=== PATIENT | female | born 1985 | race Caucasian/White ===

== ENCOUNTER 2023-04-19 18:06 | Emergency (ER) | payer BC, SELFPAY ==
[2023-04-19 18:06] VITALS: BP 146/73; PULSE 85; RESP 16; TEMP 36.7; O2SAT 100; BMI 26.6
--- NOTE | 2023-04-19 18:09 | ECG_ITS ---
APPROVED REPORT Exam: Resting ECG HR:86 bpm ECG Measurements Heart Rate 86 AXES MA 148 P 69 QRSd 100 QRS 18 QT 370 T 47 QTc 413 Conclusion SINUS RHYTHM WITH SINUS ARRHYTHMIA NORMAL ECG UNCONFIRMED REPORT Electronically signed by : Shun Jane MD 04/19/2023 20:01:14
--- NOTE | 2023-04-19 18:24 | XR_ITS ---
PROCEDURE INFORMATION: Exam: XR Chest Exam date and time: 04/19/2023 6:32 PM Age: 38 years old Clinical indication: Pain; Other: Chest tightness; Additional info: Cp TECHNIQUE: Imaging protocol: Radiologic exam of the chest. Views: 1 view. COMPARISON: No relevant prior studies available. FINDINGS: Lungs: Unremarkable. No consolidation. Pleural spaces: Unremarkable. No pleural effusion. No pneumothorax. Heart/Mediastinum: Unremarkable. No cardiomegaly. Bones/joints: Unremarkable. IMPRESSION: No acute findings.
--- NOTE | 2023-04-19 18:26 | HMH.EDGENADL ---
Discharge Plan Disposition Patient Disposition: Home, Self-Care Condition: Fair Chief Complaint: Chest Pain Referrals Follow up/Referrals: Teresa Fernandez APRN [Primary Care Provider] - See instructions Clinical Impressions Clinical Impression: Atypical chest pain, Hypokalemia Instructions Patient Instructions: DI for Atypical Chest Pain, DI for Hypokalemia Discharge ED Provider: Amadou Car General Adult HPI General Chief complaint: Chest Pain Stated complaint: CP Time Seen by Provider: 04/19/23 18:27 History of Present Illness HPI narrative: This is a 38-year-old female without significant past medical history who presents emergency room with several days of substernal chest pain described as tightness the pain is nonradiating and accompanied by shortness of breath. The pain is nonprovoked and self-limited. Patient denied any nausea vomiting diaphoresis abdominal pain fevers or chills patient does say she has had clear cough no hemoptysis no shortness of breath. Related Data Allergies Allergy/AdvReac Type Severity Reaction Status Date / Time No Known Allergies Allergy Verified 04/19/23 18:32 [facility] Disclaimer: The information contained in this section may have been updated after the patient was seen, as this information can be updated by other users. Social History Smoking Status: Never smoker alcohol intake: never current occupational status: employed Travel in the last 8 weeks: Inside the [place] ROS Obtained: Yes All systems reviewed & no additional complaints except as documented Skin no rash or lesions HEENT no runny nose sore throat Pulmonary no cough or shortness of breath Cardiovascular see HPI GI no abdominal pain nausea or vomiting no dysuria pyuria hematuria Musculoskeletal no neck or back pain Endocrine no polydipsia polyuria or polyphasia Psych no SI or HI The rest of the systems were reviewed and found to be negative Physical Exam General General appearance: alert Respiratory Respiratory exam: Present normal lung sounds bilaterally Cardiovascular Cardiovascular exam: Present regular rate Neurological Exam Neurological exam: Present alert Medical Decision Making Inocente Inquiry Pt receiving controlled substance: No Vital Signs: 04/19/23 18:06 04/19/23 18:30 Temperature 98.0 F Temperature Source Oral Pulse Rate 79 Pulse Rate [Left] 85 Respiratory Rate 16 17 Blood Pressure 120/85 Blood Pressure [Right Arm] 146/73 H Blood Pressure Mean 105 Blood Pressure Mean [Right Arm] 97 02 Sat by Pulse Oximetry 100 96 Oxygen Delivery Method Room Air Lab Data Lab Results 04/19/23 18:17: Sodium 142, Potassium 3.1 L, Chloride 102, Carbon Dioxide 28, Anion Gap 15.1 H, BUN 14, Creatinine 0.70, Estimated Creat Clear 129, Estimated GFR 94, Est GFR ( Amer) 113, Glucose 89, Calcium 8.9, Total Bilirubin 1.0, AST 30, ALT 30, Alkaline Phosphatase 52, Total Protein 7.4, Albumin 4.3, Globulin 3.1, Albumin/Globulin Ratio 1.4 04/19/23 18:17: WBC 6.4, RBC 5.18, Hgb 14.8, Hct 46.2, MCV 89.2, MCH 28.6, MCHC 32.1, RDW 13.1, Plt Count 379, MPV 7.8, Neut % (Auto) 49.4, Lymph % (Auto) 38.2, Kendall % (Auto) 7.1, Eos % (Auto) 4.9, Baso % (Auto) 0.5, Neut # (Auto) 3.2, Lymph # (Auto) 2.5, Kendall # (Auto) 0.5, Eos # (Auto) 0.3, Baso # (Auto) 0.0 04/19/23 18:17: Troponin I < 0.01 Result diagrams: 04/19/23 18:17 04/19/23 18:17 Orders (Tests/Meds): ED MEDICATIONS Generic Name Dose Route Start Last Admin Trade Name Freq PRN Reason Stop Dose Admin Potassium Chloride 40 meq 04/19/23 19:24 Potassium Chloride 20meq Tab PO 04/19/23 19:25 ONCE ONE Discontinued Medications Generic Name Dose Route Start Last Admin Trade Name Freq PRN Reason Stop Dose Admin Belladonna Alkaloids 60 ml 04/19/23 18:23 04/19/23 18:35 Belladonna Alkaloids 60 Ml Ml PO 04/19/23 18:24 60 ml ONCE ONE Administration Ketorolac Tromet
[2023-04-19 18:30] VITALS: BP 120/85; PULSE 79; RESP 17; O2SAT 96
--- NOTE | 2023-04-19 18:36 | PC.NURSE ---
radiology at for portable xray
[2023-04-19 18:39] LABS: Basophils % 0.5 % (0.1-2.0); Eosinophils # 0.3 K/mm3 (0.0-0.4); Eosinophils % 4.9 % (0.1-12.0); Hematocrit 46.2 % (37.0-47.0); Hemoglobin 14.8 g/dL (12.2-16.2); Lymphocytes # 2.5 K/mm3 (0.7-4.5); Lymphocytes % 38.2 % (10-50); Mean Corpuscular HGB Conc 32.1 g/dL (31.8-35.4); Mean Corpuscular Hemoglobin 28.6 pg (27.0-31.2); Mean Corpuscular Volume 89.2 fl (81-99); Mean Platelet Volume 7.8 fl (7.4-10.4); Monocytes # 0.5 K/mm3 (0.1-1.0); Monocytes % 7.1 % (1.7-9.3); Neutrophils # 3.2 K/mm3 (1.8-7.8); Neutrophils % 49.4 % (37.0-80.0); Platelet Count 379 K/mm3 (142-424); Red Blood Count 5.18 M/mm3 (4.20-5.40); Red Cell Distribution Width 13.1 % (11.5-17.5); White Blood Count 6.4 K/mm3 (4.8-10.8)
[2023-04-19 18:41] LABS: Alanine Aminotransferase 30 U/L (12-78); Albumin Level 4.3 g/dl (3.5-5.0); Albumin/Globulin Ratio 1.4 (1.1-1.8); Alkaline Phosphatase 52 U/L (38-126); Anion Gap 15.1 mEq/L (5-15); Aspartate Amino Transferase 30 U/L (14-36); Blood Urea Nitrogen 14 mg/dl (7-17); Calcium 8.9 mg/dl (8.4-10.2); Carbon Dioxide 28 mmol/L (22.0-30.0); Chloride 102 mmol/L (98-107); Creatinine Clearance Estimated 129 mL/min (50-200); Estimated Glomerular Filt Rate 94 ml/min (>60); GFR (African American) 113 ML/MIN (>60); Globulin 3.1 g/dL (1.3-3.2); Glucose 89 mg/dl (74-100); Potassium 3.1 mmoL/L (3.5-5.1); Sodium 142 mmol/L (136-145); Total Protein,Serum 7.4 g/dl (6.3-8.2)
[2023-04-19 18:54] LABS: Troponin I < 0.01 ng/ml (0.00-0.034)
[2023-04-19 19:34] VITALS: BP 126/78; PULSE 71; RESP 16; TEMP 36.7; O2SAT 96
== END 2023-04-19 19:36 | disposition home or self-care (01) ==
PROVIDERS: Emergency Provider Emergency Medicine; PCP Nurse Practitioner Family
DX: R07.89 Other chest pain (principal); E87.6 Hypokalemia; R06.02 Shortness of breath
CPT/HCPCS: 71045; 80053; 84484; 85025; 93005; 96374; 99285

== ENCOUNTER 2023-06-01 19:31 | Emergency (ER) | payer BC, SELFPAY ==
[2023-06-01 19:32] VITALS: BP 112/77; PULSE 64; RESP 16; TEMP 36.7; O2SAT 97; BMI 26.6
[2023-06-01 19:37] VITALS: BP 112/77; PULSE 87; O2SAT 97
[2023-06-01 20:00] VITALS: BP 110/67; PULSE 88; O2SAT 96
--- NOTE | 2023-06-01 20:19 | PC.NURSE ---
rounded on pt no new needs voiced.
--- NOTE | 2023-06-01 20:19 | HMH.EDGENADL ---
Discharge Plan Disposition Patient Disposition: Home, Self-Care Prescriptions Prescriptions: New Eliquis DVT-PE Treat 30D Start 5 mg (74 tabs) tablets,dose pack 5 mg PO BID Qty: 74 0RF Referrals Follow up/Referrals: Teresa Fernandez APRN [Primary Care Provider] - See instructions Activity Restrictions/Add. Instructions Additional Instructions/Restrictions: Take Eliquis as prescribed. Follow-up with your family doctor as discussed this week. If you have any worsening of your condition or any other concerning signs or symptoms, return to the emergency department or your primary care doctor for further evaluation. Clinical Impressions Clinical Impression: Acute superficial venous thrombosis of left lower extremity Discharge ED Provider: Jonathon Garcia General Adult HPI General Chief complaint: Extremity Injury, Lower Stated complaint: red spot on LT leg Time Seen by Provider: 06/01/23 19:34 Mode of Arrival: Ambulatory Source of Information: Patient Limitations: No Limitations Description of Symptoms (Recalled from ER Triage Doc. by RN): pt c/o red, warm spot on lt thigh. pt states she just finished blood thinner for a dvt in rt leg. pt denies any trauma and accident. History of Present Illness HPI narrative: This is a 38-year-old female with history of DVT and vein disease, not currently on anticoagulation, not taking her aspirin presenting with lower extremity swelling. Patient states that she started having swelling in the anterior left thigh about 4 days prior to arrival. Has gotten worse since that time. Was on a 7-day trial of Xarelto but ended 3 days prior to arrival out of concern for another blood clot by her primary care provider. Not currently taking anything. Redness, pain, swelling, but patient denies fevers, chills, chest pain, shortness of breath, or any other concerns. Related Data Previous Rx's Medication Instructions Recorded apixaban 5 mg (74 tabs) tablets in 5 mg PO BID #74 tabs 06/01/23 a dose pack (Eliquis DVT-PE Treat 30D Start) Allergies Allergy/AdvReac Type Severity Reaction Status Date / Time No Known Allergies Allergy Verified 04/19/23 18:32 [facility] Disclaimer: The information contained in this section may have been updated after the patient was seen, as this information can be updated by other users. Social History (Updated 04/19/23 @ 19:28 by Amadou Car MD) Smoking Status: Never smoker alcohol intake: never current occupational status: employed Travel in the last 8 weeks: Inside the [place] ROS Obtained: Yes All systems reviewed & no additional complaints except as documented Physical Exam General General appearance: alert, in no apparent distress and other ( ) Head Head exam: atraumatic and normocephalic Eye Eye exam: Present normal appearance, PERRL and EOMI ENT ENT exam: Present mucous membranes moist Neck Neck exam: Present normal inspection, full ROM and trachea midline Respiratory Respiratory exam: Absent respiratory distress, wheezes, stridor, accessory muscle use or prolonged expiratory phase Cardiovascular Cardiovascular exam: Present regular rate and normal rhythm Abdominal Exam Abdominal exam: Present soft; Absent distention, tenderness, guarding, rebound, rigidity or normal bowel sounds Extremities Exam Extremities exam: Present tenderness and other (Palpable cord, erythema, tenderness overlying anterior aspect of left thigh that is approximately 8 to 10 cm in total. Surrounding erythema.); Absent edema Neurological Exam Neurological exam: Present alert, oriented X3, CN II-XII intact and normal gait; Absent motor sensory deficit Skin Skin exam: Present warm and dry; Absent diaphoresis or erythema Medical Decision Making Medical Records Medical records reviewed: Yes I reviewed the patient's medical records. Inocente Inquiry Pt receiving controlled substance: No Inocente was queried for this patient: No Vital Signs:
[2023-06-01 20:30] VITALS: BP 119/79; PULSE 85; O2SAT 98
--- NOTE | 2023-06-01 20:55 | PC.NURSE ---
pt is resting in bed nothing needed at this time, call light at bs
--- NOTE | 2023-06-01 21:29 | PC.NURSE ---
Dr. Garcia at BS
[2023-06-01 21:42] VITALS: BP 142/75; PULSE 75; RESP 19; TEMP 36.8; O2SAT 98
== END 2023-06-01 21:45 | disposition home or self-care (01) ==
PROVIDERS: Emergency Provider Emergency Medicine; PCP Nurse Practitioner Family
DX: I82.812 Embolism and thrombosis of superficial veins of left lower extremity (principal)
CPT/HCPCS: 99284

== ENCOUNTER 2024-05-07 17:43 | Emergency (ER) | payer SELFPAY ==
[2024-05-07 18:00] VITALS: BP 111/66; PULSE 60; RESP 18; TEMP 36.7; O2SAT 99; BMI 30.9
--- NOTE | 2024-05-07 18:11 | EXP.UTC ---
Discharge Plan Disposition Patient Disposition: Home, Self-Care Condition: Good Prescriptions Prescriptions: New amoxicillin-pot clavulanate 875-125 mg tablet 1 tab PO Q12H 10 Days Qty: 20 0RF No Action Eliquis DVT-PE Treat 30D Start 5 mg (74 tabs) tablets,dose pack 5 mg PO BID Qty: 74 0RF Referrals Follow up/Referrals: Teresa Fernandez APRN [Primary Care Provider] - See instructions Activity Restrictions/Add. Instructions Additional Instructions/Restrictions: Take all medication as prescribed. Increase fluids and rest. IF symptoms persist or worsen, return to clinic or go to your PCP. Clinical Impressions Clinical Impression: Dental abscess Instructions Patient Instructions: DI for Dental Pain Discharge ED Provider: Kathya Hightower [facility] General Stated complaint: sinus pressure Time Seen by Provider: 05/07/24 18:04 History of Present Illness Provider Complaint: Pt reports that her gums and left maxillary sinus started hurting yesterday. She reports that she has some teeth that are due to be pulled in 3 weeks. She reports post nasal drainage as well. She has taken Naprosyn for her symptoms. Related Data Previous Rx's Medication Instructions Recorded apixaban 5 mg (74 tabs) tablets in 5 mg PO BID #74 tabs 06/01/23 a dose pack (Eliquis DVT-PE Treat 30D Start) amoxicillin 875 mg-potassium 1 tab PO Q12H 10 days #20 tabs 05/07/24 clavulanate 125 mg tablet Allergies Allergy/AdvReac Type Severity Reaction Status Date / Time No Known Allergies Allergy Verified 04/19/23 18:32 [facility] Disclaimer: The information contained in this section may have been updated after the patient was seen, as this information can be updated by other users. Social History (Updated 04/19/23 @ 19:28 by Amadou Car MD) Smoking Status: Never smoker alcohol intake: never current occupational status: employed Travel in the last 8 weeks: [place] the [place] ROS Obtained: Yes All systems reviewed & no additional complaints except as documented Constitutional Constitutional: Reports system reviewed and no additional complaints, except as documented Eyes Eyes: Reports system reviewed and no additional complaints, except as documented ENT Ears, Nose, Mouth, and Throat: Reports system reviewed and no additional complaints, except as documented, Reports dental pain and Reports post nasal drip Cardiovascular Cardiovascular: Reports system reviewed and no additional complaints, except as documented Respiratory Respiratory: Reports system reviewed and no additional complaints, except as documented Gastrointestinal Gastrointestingal: Reports system reviewed and no additional complaints, except as documented Genitourinary Female Genitourinary: Reports system reviewed and no additional complaints, except as documented Musculoskeletal Musculoskeletal: Reports system reviewed and no additional complaints, except as documented Integumentary/Breasts Skin/Breast: Reports system reviewed and no additional complaints, except as documented Neurologic Neurologic: Reports system reviewed and no additional complaints, except as documented Endocrine Endocrine: Reports system reviewed and no additional complaints, except as documented Hematologic/Lymphatic Henatologic/Lymphatic: Reports system reviewed and no additional complaints, except as documented Allergic/Immunologic Allergic/Immunologic: Reports system reviewed and no additional complaints, except as documented Physical Exam General General appearance: alert Comment: left side of face swollen Head Head exam: atraumatic and normocephalic Eye Eye exam: Present normal appearance Expanded ENT Exam External ear exam: Present normal external inspection Nose exam: Present sinus tenderness (left maxillary) Nasal speculum exam: Bilateral: normal Mouth exam: Present normal external inspection Teeth exam: Present dental caries and dental tenderness # (14,15) Throat exam: Present normal inspection Comment: Petechia on soft palate Neck Neck exam: Present normal inspection; Absent lymphadenopathy Chest Chest inspection: Present normal inspection and symmetric chest wall rise Respiratory Respiratory exam: Present normal lung sounds bilaterally Cardiovascular Cardiovascular exam: Present regular rate and normal rhythm Abdominal Exam Abdominal exam: Present soft and normal bowel sounds Extremities Exam Extremities exam: Present normal inspection Back Exam Back exam: Present normal inspection Neurological Exam Neurological exam: Present alert and oriented X3 Psychiatric Psychiatric exam: Present normal affect and normal mood Skin Skin exam: Present warm, dry and intact Lymphatic Lymphatic Findings: no adenopathy Medical Decision Making Inocente Inquiry Pt receiving controlled substance: No Inocente was queried for this patient: No
[2024-05-07 18:17] VITALS: BP 111/66; PULSE 60; RESP 18; TEMP 36.7; O2SAT 99
== END 2024-05-07 18:20 | disposition home or self-care (01) ==
PROVIDERS: Emergency Provider Nurse Practitioner Family; PCP Nurse Practitioner Family
DX: K04.7 Periapical abscess without sinus (principal); R09.81 Nasal congestion; R09.82 Postnasal drip
CPT/HCPCS: 99212; 99214; G0463